=== PATIENT | male | born 1975 | race Caucasian/White ===

== ENCOUNTER 2020-04-13 22:56 | Emergency (ER) | payer OTHER ==
[~2020-04-13] VITALS: Ht 157.5 cm; Wt 59.1 kg
[2020-04-13 23:27] VITALS: Ht 157.5 cm; Wt 59.1 kg
[2020-04-13 23:49] LABS: BASOPHILS 0.6 % (0-2); EOSINOPHILS 0.2 % (0-7); HEMATOCRIT 51.5 % (42.0-54.0); IMMATURE GRANULOCYTES 0.2 % (0-5); MCH 31.4 pg (26.0-34.0); MCV 89.9 fL (80.0-100.0); MEAN PLATELET VOLUME 9.4 fL (7.4-10.4); MONOCYTES 6.3 % (2-11); NEUTROPHILS 50.7 % (40-80); PLATELET COUNT 368 10x3/uL (130-400); RBC 5.73 10x6/uL (4.20-6.10); RDW 13.6 % (11.5-14.5); WBC 9.5 10x3/uL (4.8-10.8)
[2020-04-14 00:06] LABS: CALC OSMOLALITY 276 mosm/kg (275-300); CALCIUM 8.5 mg/dL (8.5-10.1); CARBON DIOXIDE 25.1 mmol/L (21.0-32.0); CHLORIDE - SERUM 100 mmol/L (98-107); CREATININE - SERUM 1.1 mg/dL (0.6-1.3); GLUCOSE 132 mg/dL (74-106); POTASSIUM - SERUM 3.9 mmol/L (3.5-5.1); SODIUM 136 mmol/L (136-145); UREA NITROGEN 21 mg/dL (7-18); eGFR NON AFRICAN AMERICAN 77 mL/min (90-120)
[2020-04-14 00:12] LABS: ALBUMIN 4.4 g/dL (3.4-5.0); ALKALINE PHOSPHATASE 134 U/L (30-120); ALT (SGPT) 30 U/L (10-68); BILIRUBIN - TOTAL 0.75 mg/dL (0.2-1.3); MAGNESIUM - SERUM 2.4 mg/dL (1.8-2.4); PROTEIN - SERUM 8.1 g/dL (6.4-8.2)
[2020-04-14 01:35] LABS: BILIRUBIN NEGATIVE (NEGATIVE); GLUCOSE NEGATIVE (NEGATIVE); KETONE NEGATIVE (NEGATIVE); NITRITE NEGATIVE (NEGATIVE); UROBILINOGEN NORMAL (NORMAL)
[2020-04-14 01:40] LABS: UDS - AMPHET NEGATIVE QUAL (NEGATIVE); UDS - BARB NEGATIVE QUAL (NEGATIVE); UDS - BENZO NEGATIVE QUAL (NEGATIVE); UDS - COCAINE NEGATIVE QUAL (NEGATIVE); UDS - OPIATE NEGATIVE QUAL (NEGATIVE); UDS - PCP NEGATIVE QUAL (NEGATIVE); UDS - THC NEGATIVE QUAL (NEGATIVE)
[2020-04-14] MEDS ORDERED: LIBRIUM25 MG PO (04:29)
[2020-04-14 07:04] VITALS: BP 115/74
== END 2020-04-14 07:05 | disposition home or self-care (01) ==
LOC: D.ER 22:56
PROVIDERS: Emergency Medicine
DX: F10.229 Alcohol dependence with intoxication, unspecified (principal); F10.239 Alcohol dependence with withdrawal, unspecified; Y90.8 Blood alcohol level of 240 mg/100 ml or more